=== PATIENT | female | born 1975 | race Caucasian/White ===

== ENCOUNTER 2016-08-12 08:01 | Observation (INO) | payer SELFPAY ==
--- NOTE | ~2016-08-12 | HP ---
History And Physical [address] [place]. [address] NAME: RADHA MOSLEY : 77 STATUS : ADM Ramiro PAT#: [id number] AGE: 41 ADM/REG DATE : 08/12/16 MR#: [id number] REPORT SERV DATE: 08/12/16 DICTATED BY: YUDITH SABA DATE: 08/12/16 REPORT STATUS : Draft TRANSCRIBED BY: MODL DATE: 08/12/16 DATE OF ADMISSION: 08/12/2016 CHIEF COMPLAINT: Substernal chest pain and back pressure. HISTORY OF PRESENT ILLNESS: This is a pleasant 41-year-old obese white female with a history of hypertension and family history of myocardial infarction. She does also have a history of bipolar disorder and anxiety. She presented to the emergency department for pain onset at 4:30 Eastern Standard Time that awakened her with substernal/epigastric, constant, squeezing viselike pain. She reports that it radiated to her mid back. It was associated with vomiting. She had eaten a few bites of a pop tart and milk at approximately 4:30 to see if that would improve her symptoms and she then proceeded to vomit. Symptoms are worse with deep breaths. She did have associated nausea and shortness of breath. In the ER, they provided her GI cocktail, which did not help. They gave her Dilaudid and fluids which did help. Additionally at 10:30, after they did a CT, they gave nitroglycerin and aspirin. Her symptoms have improved after the Dilaudid, however. CT of the abdomen and pelvis was negative except for left adnexal cyst. 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 She tells me that she had run out of her medications approximately one and half weeks ago including her blood pressure medicine and bipolar medications. This was due to financial issues with affording the medications. However, she was able to fill her prescription last night and is now currently back on the medications and doing fine with that. PAST MEDICAL HISTORY: 1. Hypertension. 2. Anxiety. 3. Depression. 4. Bipolar disorder. PAST SURGICAL HISTORY: Hysterectomy. SOCIAL HISTORY: twice. 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 She smoked for one year in 2003 and quit. She has rare alcohol. She drinks approximately four caffeinated drinks per day including a 20 ounce of soda and one cup of coffee. She has no formal exercise program, but reports that she is active with massage therapy and has no chest pain with exertion. No dyspnea on exertion either. FAMILY HISTORY: Father of a myocardial infarction at the age of 56. ALLERGIES: DARVOCET, ALLERGY ANAPHYLAXIS. HOME MEDICATIONS: List reviewed. 1. Cymbalta 60 mg p.o. daily. 2. Lisinopril/HCTZ 10/12.5 mg tablet one tablet p.o. daily. 3. Albuterol 2 puffs inhaled p.r.n. shortness of breath. History And Physical [address] [address] NAME: RADHA MOSLEY : 77 STATUS : ADM Ramiro PAT#: [id number] AGE: 41 ADM/REG DATE : 08/12/16 MR#: [id number] REPORT SERV DATE: 08/12/16 DICTATED BY: YUDITH SABA DATE: 08/12/16 REPORT STATUS : Draft TRANSCRIBED BY: PANKAJ DATE: 08/12/16 PHYSICAL EXAMINATION: VITAL SIGNS: Oxygen saturation 98% on room air, blood pressure 137/76 after an initial blood pressure of 152/88, temperature 98, pulse 81, and respiratory rate 20. Height 152 cm, weight 90.8 kg, and body mass index 39.3. GENERAL: Well developed, well nourished. In no apparent distress. HEENT: Head normocephalic. No xanthelasma. Sclera clear, anicteric. Moist mucous membranes without pallor. No lymphadenopathy. No deficits noted. NECK: Trachea midline. Supple. No thyromegaly, JVD, or bruits. RESPIRATORY: Unlabored respirations. Breath sounds clear bilaterally to posterior auscultation. No wheezes, rhonchi or crackles. CARDIOVASCULAR: Regular rate and rhythm. No murmur, rub, or gallop appreciated. No chest wall tenderness to palpation. ABDOMEN: Soft, nontender, and nondistended. Active bowel sounds auscultated x4 quadrants. No organomegaly and no masses. No aortic bruit. EXTREMITIES: DP/PT and radial pulses 2+ bilaterally. No clubbing, cyanosis, or edema. SKIN: Warm, dry, intact. No rash. Normal turgor. MUSCULOSKELETAL: Moves all extremities in bed without difficulty. NEURO/PSYCH: Alert and oriented x3 with no acute distress. Affect appropriate to current situation. LABORATORY DATA: BMP: Sodium 140, potassium 3.8, creatinine 0.75, glucose 167. Calcium 8.2. CBC: White blood cell count 9.2, hemoglobin 11.9, hematocrit 33.5, and platelets 326. Troponin less than 0.02 x2. STUDIES: Chest x-ray: No acute processes. CT of the abdomen and pelvis, without contrast, no evidence of acute abnormality within the abdomen or pelvis. Right renal cortical scarring, left adnexal cyst, status post hysterectomy. EKGs, personally interpreted x2: Normal sinus rhythm with no ischemia. Telemetry: Sinus rhythm/sinus tach, 80s to low 100S. ASSESSMENT AND PLAN: 1. Substernal chest pain. Two negative troponins. EKGs benign. We will plan a treadmill only stress test for cardiac risk factors of hypertension and family history of myocardial infarction at a premature age in her father at the age of 56. This treadmill only stress test was low risk with no ischemia, and therefore, the patient will be discharged to home. We will continue home medications. She is to follow up with her primary care provider in one to two weeks. 2. Hypertension. We will continue her home medications. 3. Obesity. I have encouraged weight loss. 4. Bipolar disorder. The patient reports she ran out of medications due to financial History And Physical [address] [address] NAME: RADHA MOSLEY : 77 STATUS : ADM Ramiro PAT#: [id number] AGE: 41 ADM/REG DATE : 08/12/16 MR#: [id number] REPORT SERV DATE: 08/12/16 DICTATED BY: YUDITH SABA DATE: 08/12/16 REPORT STATUS : Draft TRANSCRIBED BY: PANKAJ DATE: 08/12/16 issues, but now was able to fill the medication. She is to continue current medications, and I would defer management of anxiety and bipolar issues to primary care provider. She is to follow up with PCP in one to two weeks. 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 REDD/PAKNAJ Yudith Saba NP / [id number] CC: NAYELI Pacheco AMANDA LAW
[2016-08-12 07:28] LABS: BASOPHILS 0.2 %; BASOPHILS ABSOLUTE 0.02 10/3/uL (0.0-0.16); EOSINOPHILS 1.3 %; EOSINOPHILS ABSOLUTE 0.12 10/3/uL (0.0-0.53); HEMATOCRIT 33.5 % (36.0-48.0); HEMOGLOBIN 11.9 g/dL (12.0-16.0); IMMATURE GRANULOCYTES 0.2 %; IMMATURE GRANULOCYTES ABSOLUTE 0.02 10/3/uL (0.0-0.11); LYMPHOCYTES 25.6 %; LYMPHOCYTES ABSOLUTE 2.35 10/3/uL (0.67-4.30); MANUAL DIFF NO %; MEAN CORPUS HGB CONC 35.5 g/dL (32.0-36.0); MEAN CORPUSCULAR HEMOGLOB 28.9 pg (26.0-34.0); MEAN CORPUSCULAR VOLUME 81.3 fL (80-100); MEAN PLATELET VOLUME 8.7 fL (9.2-13.0); MONOCYTES 7.2 %; MONOCYTES ABSOLUTE 0.66 10/3/uL (0.21-1.20); NEUTROPHILS 65.5 %; PLATELET COUNT 326 10/3/uL (150-400); RBC DISTRIBUTION WIDTH 13.8 % (12.0-16.0); RED CELL COUNT 4.12 10/6/uL (4.0-5.6); WHITE BLOOD CELLS 9.2 10/3/uL (4.5-10.5)
[2016-08-12 07:33] LABS: PROTIME (NOT ORD) 13.4 SEC (12.0-14.5)
[2016-08-12 07:45] LABS: A/G RATIO 0.8 (0.7-1.9); ALBUMIN 3.1 G/DL (3.5-5.0); ALKALINE PHOSPHATASE 87 U/L (45-117); BUN (BLOOD UREA NITROGEN) 14 MG/DL (6-23); CALCIUM, SERUM 8.2 MG/DL (8.5-10.4); CHLORIDE, SERUM 106 MMOL/L (96-112); CO2 (CARBON DIOXIDE) 21 MMOL/L (24-34); CREATININE 0.75 MG/DL (0.55-1.02); GFR AFRICAN AMERICAN 116 ML/MIN (>=60); GFR NON AFRICAN AMERICAN 100 ML/MIN (>=60); GLOBULIN 3.8 G/DL (2.5-4.1); GLUCOSE, SERUM 167 MG/DL (60-99); POTASSIUM, SERUM 3.8 MMOL/L (3.5-5.3); SGOT(AST) 15 U/L (5-40); SGPT(ALT) 24 U/L (5-65); SODIUM, SERUM 140 MMOL/L (135-148); TOTAL BILIRUBIN 0.2 MG/DL (0-1.2); TOTAL PROTEIN 6.9 G/DL (6.0-8.5); TROPONIN I <0.02 NG/ML (<0.05)
[2016-08-12 08:08] LABS: D-DIMER QUANTITATIVE 0.34 ug/mLFEU (< 0.50)
[2016-08-12] MEDS ORDERED: CYMBALTA60 PO (10:38)
[2016-08-12] MEDS ORDERED: ZESTORETIC1 TAB PO (10:38)
[2016-08-12] MEDS ORDERED: PROAIR HFA INH (10:39)
[2016-08-12 11:47] LABS: TROPONIN I <0.02 NG/ML (<0.05)
== END 2016-08-12 21:58 | disposition home or self-care (01) ==
LOC: ER 08:01 → CDU1 11:31 → CDU2 11:40
PROVIDERS: Emergency Medicine
DX: R07.2 Precordial pain (principal); I10 Essential (primary) hypertension; F41.9 Anxiety disorder, unspecified; E66.9 Obesity, unspecified; F31.9 Bipolar disorder, unspecified; Z90.710 Acquired absence of both cervix and uterus; Z87.891 Personal history of nicotine dependence; Z88.8 Allergy status to other drugs, medicaments and biological substances; Z79.899 Other long term (current) drug therapy
CPT/HCPCS: 71010; 74176; 80053; 83690; 83735; 84484; 85025; 85379; 85610; 93005; 93017; 96374; 96375; 99285; A9270-GY; G0378; J1170; J2405